=== PATIENT | male | born 1955 | race Caucasian/White ===

== ENCOUNTER 2022-03-08 06:15 | Observation (INO) ==
--- NOTE | 2022-03-01 12:32 | XRay Report ---
CLINICAL INFORMATION: Preop COMPARISON: 10/22/2020 TECHNIQUE: PA and Lateral views FINDINGS: The heart size, mediastinum and pulmonary vessels are unremarkable. The lungs are clear. There are no effusions. The bones and soft tissues are within normal limits. IMPRESSION: Normal chest. Interpreted and Authenticated by: Hector Muniz 03/01/22
[2022-03-01 15:32] LABS: Basophils # (Auto) 0.04 K/mcL (0.00-0.30); Basophils % (Auto) 0.5 % (0.0-2.0); Eosinophils # (Auto) 0.21 K/mcL (0.00-0.70); Eosinophils % (Auto) 2.9 % (0.0-7.0); Hematocrit 38.3 % (40.1-51.0); Hemoglobin 12.8 g/dL (13.7-17.5); Lymphocytes # (Auto) 1.69 K/mcL (1.50-4.80); Lymphocytes % (Auto) 23.2 % (15.5-49.0); Mean Cell Volume 95.3 fL (80.0-100.0); Mean Corpuscular HGB Conc 33.4 g/dL (31.0-36.0); Mean Platelet Volume 9.4 fL (7.4-10.4); Monocytes # (Auto) 0.78 K/mcL (0.10-0.90); Monocytes % (Auto) 10.7 % (1.0-12.0); Neutrophils % (Auto) 62.7 % (38.0-78.0); Platelet Count 245 K/mcL (140-440); RBC 4.02 M/mcL (4.63-6.08); Red Cell Distribution Width 13.7 % (11.5-14.5); WBC 7.3 K/mcL (4.5-11.0)
[2022-03-01 15:48] LABS: ALT/SGPT 13 U/L (<40); AST/SGOT 21 U/L (<40); Albumin 4.8 gm/dL (3.2-5.2); Albumin/Globulin Ratio 1.6 (1.0-2.3); Alkaline Phosphatase 83 U/L (39-117); Blood Urea Nitrogen 58 mg/dL (8-23); Calcium 9.9 mg/dL (8.6-10.4); Carbon Dioxide 20 mmol/L (22-30); Chloride 98 mmol/L (96-108); Glomerular Filtration Rate 57; Glucose 133 mg/dL (70-105)
[2022-03-01 16:04] LABS: INR 3.1 (0.9-1.1); Partial Thromboplastin Time 44.8 sec (20.0-37.0); Prothrombin Time 33.3 sec (11.9-14.5)
--- NOTE | 2022-03-06 07:35 | EKG ---
[facility] Test Date: 2022-03-01 Pat Name: Daniel Sampson Department: [facility] Room: Gender: Male Direct Support Professional Caregiver: : 1955 Requested By: Fermín Billy Order Number: [id number] Reading MD: Celestine Coronado Measurements Intervals [place] Rate: 71 P: 44 NV: 165 QRS: -14 QRSD: 102 T: 22 QT: 383 QTc: 417 Interpretive Statements Sinus rhythm Borderline low voltage, extremity leads Electronically Signed On 03-06-2022 7:35:38 PDT by Celestine Coronado /store/[email or web address]/[id number]
[~2022-03-08 06:15] MED LIST: ceFAZolin 2 GM in DEXTROSE 5% IN WATER 50 ML IV SCH
[2022-03-08 06:17] LABS: POC INR 1.2 (0.8-1.2); POC Pro Time 14.7 (11.9-14.5)
[2022-03-08] MEDS ORDERED: ONDANSETRON 4 MG/2 ML VIAL ONE (07:26)
[2022-03-08] MEDS ORDERED: LIDOCAINE HCL/PF 100 MG/5 ML SYRINGE IV ONE (07:26)
[2022-03-08] MEDS ORDERED: MAGNESIUM SULFATE 2 GM/50 ML BAG IV ONE (07:26)
[2022-03-08] MEDS ORDERED: GLYCOPYRROLATE 0.2 MG/ML VIAL IV ONE (07:26)
[2022-03-08] MEDS ORDERED: PHENYLephrine 1 MG/10 ML SYRINGE (ANEST) ONE (07:26)
[2022-03-08] MEDS ORDERED: ROCURONIUM 10 MG/ML ML IV ONE (07:26)
[2022-03-08] MEDS ORDERED: ePHEDrine 50 MG/5 ML SYRINGE (ANEST) IV ONE (07:26)
[2022-03-08] MEDS ORDERED: fentaNYL 250 MCG/5 ML VIAL IV ONE (07:26)
[2022-03-08] MEDS ORDERED: PROPOFOL 200 MG/20 ML VIAL IV ONE (07:26)
[2022-03-08] MEDS ORDERED: SUGAMMADEX SODIUM 200 MG/2 ML VIAL IV ONE (07:26)
[2022-03-08] MEDS ORDERED: DEXAMETHASONE 10 MG/ML VIAL ONE (07:26)
[2022-03-08] MEDS ORDERED: KETAMINE 50 MG/ML Syringe (ANEST) IV ONE (07:26)
[2022-03-08] MEDS ORDERED: SUCCINYLCHOLINE 20 MG/ML ML IV ONE (07:26)
[2022-03-08] MEDS ORDERED: IPRATROPIUM/ALBUTEROL 3 ML AMPUL.NEB NEB PRN (09:07)
[2022-03-08] MEDS ORDERED: MEPERIDINE 25 MG/ML VIAL IV PRN (09:07)
[2022-03-08] MEDS ORDERED: LACTATED RINGERS 250 ML IV PRN (09:07)
[2022-03-08] MEDS ORDERED: ONDANSETRON 4 MG/2 ML VIAL IV PRN (09:07)
[2022-03-08] MEDS ORDERED: ACETAMINOPHEN 1,000 MG/100 ML BAG IV ONE (09:07)
[2022-03-08] MEDS ORDERED: diphenhydrAMINE 50 MG/ML VIAL IV PRN (09:07)
[2022-03-08] MEDS ORDERED: NALOXONE HCL 0.4 MG/ML VIAL IV PRN (09:07)
[2022-03-08] MEDS ORDERED: PROMETHAZINE 25 MG/ML VIAL IV PRN (09:07)
[2022-03-08] MEDS ORDERED: LACTATED RINGERS 1,000 ML IV SCH (09:15)
--- NOTE | 2022-03-08 09:26 | Brief Operative Note ---
Brief Operative Note Date of procedure: 03/08/22 Pre-op diagnosis: cholelithiasis with cholecystitis;incisional hernia Post-op diagnosis: other (cholelithiasis with cholecystitis ;incisional hernia) Procedure: laparoscopic cholecystectomy;incisional hernia repair Grafts/Implants: No Anesthesia: GETA Findings: dilated gallbladder with stones midline incisional hernia with incarcerated omentum Complications: none Surgeon: Fermín Billy Specimens Removed/Pathology: other (gallbladder) Condition: stable Disposition: PACU
[2022-03-08] MEDS ORDERED: HYDROcodone/APAP 5/325MG TABLET PO PRN (09:27)
[2022-03-08] MEDS: fentaNYL 100 MCG/2 ML VIAL IV PRN ×4 (09:28→09:34)
[2022-03-08] MEDS ORDERED: METHOCARBAMOL 1,000 MG/10 ML VIAL IV ONE (10:15)
[2022-03-08] MEDS ORDERED: METHOCARBAMOL 1,000 MG/10 ML VIAL ONE (10:26)
[2022-03-08] MEDS: LACTATED RINGERS 1,000 ML IV SCH ×2 (11:31→23:37)
[2022-03-08] MEDS ORDERED: HYDROmorphone 1 MG/ML SYRINGE IV PRN (11:52)
[2022-03-08] MEDS: 0.9 % SODIUM CHLORIDE 10 ML SYRINGE IV SCH ×2 (14:52→20:53)
[2022-03-08] MEDS: ACETAMINOPHEN 1,000 MG/100 ML BAG IV SCH ×2 (17:01→23:45)
[2022-03-08] MEDS: METOPROLOL SUCCINATE 25 MG TAB.XL.24H PO SCH (20:53)
[2022-03-08] MEDS: GABAPENTIN 300 MG CAPSULE PO SCH (20:53)
[2022-03-09] MEDS: ACETAMINOPHEN 1,000 MG/100 ML BAG IV SCH ×2 (05:46→09:56)
[2022-03-09] MEDS ORDERED: ONDANSETRON 4 MG/2 ML VIAL IV PRN ×2 (06:01→12:20)
[2022-03-09] MEDS: 0.9 % SODIUM CHLORIDE 10 ML SYRINGE IV SCH ×3 (06:06→20:10)
[2022-03-09] MEDS ORDERED: ONDANSETRON 4 MG/2 ML VIAL ONE (06:13)
[2022-03-09 07:07] LABS: ALT/SGPT 29 U/L (<40); AST/SGOT 35 U/L (<40); Albumin/Globulin Ratio 1.5 (1.0-2.3); Alkaline Phosphatase 74 U/L (39-117); Bilirubin,Direct 0.3 mg/dL (<0.3); Bilirubin,Total 1.4 mg/dL (0.1-1.0); Blood Urea Nitrogen 31 mg/dL (8-23); Calcium 9.2 mg/dL (8.6-10.4); Carbon Dioxide 18 mmol/L (22-30); Chloride 102 mmol/L (96-108); Globulin 2.7 gm/dL (2.2-3.7); Glomerular Filtration Rate 52; Glucose 153 mg/dL (70-105); Lactate Dehydrogenase 169 U/L (135-225); Phosphorous 4.1 mg/dL (2.5-4.5); Triglycerides 132 mg/dL (<150); Uric Acid 9.4 mg/dL (2.5-8.0)
[2022-03-09 07:21] LABS: Basophils # (Auto) 0.01 K/mcL (0.00-0.30); Basophils % (Auto) 0.1 % (0.0-2.0); Eosinophils # (Auto) 0 K/mcL (0.00-0.70); Eosinophils % (Auto) 0 % (0.0-7.0); Hematocrit 33.2 % (40.1-51.0); Hemoglobin 10.7 g/dL (13.7-17.5); Lymphocytes # (Auto) 1.02 K/mcL (1.50-4.80); Lymphocytes % (Auto) 11.8 % (15.5-49.0); Mean Cell Volume 97.4 fL (80.0-100.0); Mean Corpuscular HGB Conc 32.2 g/dL (31.0-36.0); Mean Platelet Volume 9.3 fL (7.4-10.4); Monocytes % (Auto) 16.2 % (1.0-12.0); Neutrophils % (Auto) 71.9 % (38.0-78.0); Platelet Count 238 K/mcL (140-440); RBC 3.41 M/mcL (4.63-6.08); Red Cell Distribution Width 13.7 % (11.5-14.5); WBC 8.6 K/mcL (4.5-11.0)
[2022-03-09] MEDS: LISINOPRIL 20 MG TABLET PO SCH (08:47)
[2022-03-09] MEDS: FUROSEMIDE 40 MG TABLET PO SCH (08:48)
[2022-03-09] MEDS: METOPROLOL SUCCINATE 25 MG TAB.XL.24H PO SCH ×2 (08:48→20:10)
[2022-03-09] MEDS: POTASSIUM CHLORIDE 20 MEQ TABLET PO SCH (08:48)
[2022-03-09] MEDS: PIOGLITAZONE 15 MG TABLET PO SCH (08:48)
[2022-03-09] MEDS: Empagliflozin [Jardiance] 25 mg tablet PO SCH (09:15)
--- NOTE | 2022-03-09 12:14 | General Surgery Progress Note ---
SUBJECTIVE Subjective Patient information: Note initiated : 03/09/22 at 12:11 pm Service Date, if different from initiated Date: [] Patient: Daniel Sampson 66 y/o M admitted on for Laparoscopic Cholecystectomy and Umbilical Hernia . Chief Complaint: [] Principal diagnosis: Postoperative cholecystectomy Interval history: 66-year-old male status post laparoscopic cholecystectomy on yesterday. He had an uneventful procedure. He complains of abdominal distention, nausea, uncontrolled pain. The patient does not appear to be in any acute distress. He has good active bowel sounds. His abdomen is large (normal in size. No he complains of nausea he is eating his lunch without difficulty. Will extend his stay and give him laxative and Reglan. His labs are normal with BUN 31, creatinine 1.4, LFTs are normal, white blood count 8.6, hemoglobin 10.7. Constitutional Vitals: Vital Signs Temp Pulse Resp BP Pulse Ox 98.4 F 65 12 106/75 94 03/09/22 08:23 03/09/22 08:23 03/09/22 08:23 03/09/22 08:23 03/09/22 08:23 Period Temp Pulse Resp BP Sys/Hearn Pulse Ox Last 24 Hr 97.1 F-99.0 F 65-89 12-20 96-117/56-75 91-94 Intake and Output 03/08/22 03/09/22 03/09/22 21:59 05:59 13:59 Intake Total 986 650 580 Output Total 700 300 Balance 286 350 580 Intake & Output: Intake & Output 03/08/22 03/09/22 03/09/22 21:59 05:59 13:59 Intake Total 986 650 580 Output Total 700 300 Balance 286 350 580 Intake: IV 586 100 100 Lactated Ringers 1,000 ml @ 75 486 mls/hr IV .[id number] [facility] Rx#: [id number] Oral 400 550 480 Output: Void Amount 700 300 Other: Meal Breakfast Percent of Meal Consumed 100% Feeding Ability Independent Urine Appearance Clear Clear Clear Urine Color Bright Yellow Dark Yellow Dark Yellow Urine Odor Normal Normal Normal Head Head exam: Present atraumatic, normal inspection and normocephalic Eye Eye exam: Present EOMI and normal appearance Pupils: Present normal accommodation ENT ENT exam: Present mucous membranes moist and normal oropharynx Neck Neck exam: Present full ROM and normal inspection; Absent lymphadenopathy or tenderness Respiratory Respiratory exam: Present normal respiratory exam and CTAB Cardiovascular Cardiovascular exam: Present normal rate and rhythm, RRR, +S1 and +S2; Absent JVD GI/Abdominal GI/Abdominal exam: Present normal bowel sounds and distended Additional comments: Mild tenderness around port sites Extremities Exam Extremities exam: Present normal inspection and neurovascular intact Neurological Exam Neurological exam: Present CN II-XII intact, oriented X3 and reflexes normal; Absent motor sensory deficit Psychiatric Psychiatric exam: Present flat affect A/P Assessment and plan (1) Cholelithiasis and cholecystitis without obstruction: Status: Acute (2) Postoperative ileus: Status: Acute (3) Anxiety disorder: Status: Acute (4) GERD (gastroesophageal reflux disease): Status: Chronic (5) ROLANDA on CPAP: Status: Acute Plan Metoclopramide 10 mg IV every 6 hours Milk of magnesia 30 cc every 4 hours x3 Abdominal x-ray in the morning Probable discharge in the morning Time Spent With Patient Time: Total time spent is greater than 50% in coordination of care (as documented) at patient's floor/unit and/or counseling patient:
[2022-03-09] MEDS ORDERED: WARFARIN 5 MG TABLET PO SCH (12:30)
[2022-03-09] MEDS: LACTATED RINGERS 1,000 ML IV SCH (15:25)
[2022-03-09] MEDS: METOCLOPRAMIDE 10 MG/2 ML VIAL IV SCH (17:19)
[2022-03-09] MEDS: GABAPENTIN 300 MG CAPSULE PO SCH (20:10)
[2022-03-10] MEDS: METOCLOPRAMIDE 10 MG/2 ML VIAL IV SCH ×2 (00:10→05:28)
[2022-03-10] MEDS: LACTATED RINGERS 1,000 ML IV SCH (04:42)
[2022-03-10] MEDS: 0.9 % SODIUM CHLORIDE 10 ML SYRINGE IV SCH (05:27)
[2022-03-10] MEDS: POTASSIUM CHLORIDE 20 MEQ TABLET PO SCH (08:19)
[2022-03-10] MEDS: METOPROLOL SUCCINATE 25 MG TAB.XL.24H PO SCH (08:20)
[2022-03-10] MEDS: FUROSEMIDE 40 MG TABLET PO SCH (08:20)
[2022-03-10] MEDS: PIOGLITAZONE 15 MG TABLET PO SCH (08:20)
[2022-03-10] MEDS: LISINOPRIL 20 MG TABLET PO SCH (08:20)
[2022-03-10] MEDS: Empagliflozin [Jardiance] 25 mg tablet PO SCH (08:21)
--- NOTE | 2022-03-10 11:45 | Discharge Summary ---
Discharge Provider Provider IMPORTANT FOLLOW-UP INFORMATION FOR PCP: Patient information: Note initiated : 03/10/22 at 11:38 am Service Date, if different from initiated Date: [] Patient: Daniel Sampson 66 y/o M admitted on 03/09/22 for Laparoscopic Cholecystectomy and Umbilical Hernia . Chief Complaint: [] Date of admission: 03/09/22 12:25 Discharge date: 03/10/22 Primary care physician: Lukasz Peck MD Admitting clinician: Fermín Billy Attending physician on admission: Fermín Billy Attending physician on discharge: Fermín Billy Discharging clinician: Fermín Billy COURSE Hospital Course Hospital course: 66-year-old male with symptomatic gallbladder disease and incisional hernia. He underwent laparoscopic cholecystectomy and incisional hernia repair on 08 March 2022. On the first postoperative day he had some bloating with nausea and ileus. He was monitored overnight and has had multiple bowel movements and passed flatus. He feels much better today. He is tolerating diet and is stable for discharge. Discharge diagnosis: Cholelithiasis with cholecystitis Secondary discharge diagnosis: Incarcerated incisional hernia Chronic atrial fibrillation Coronary artery disease stable Diabetes mellitus type 2 Obstructive sleep apnea Morbid obesity Reason for admission: Postoperative cholecystectomy and incisional hernia repair Procedures: Laparoscopic cholecystectomy Incisional hernia repair Pertinent studies/significant findings: None Complications: None Time Spent with Patient Time attestation: Total time spent providing and/or coordinating discharge services: Time spent: Less than 30 minutes Physical Examination Vital Signs Vital signs: Temp Pulse Resp BP Pulse Ox 97.6 F 70 17 110/69 93 03/10/22 07:42 03/10/22 07:42 03/10/22 07:42 03/10/22 07:42 03/10/22 07:42 General physical appearance General physical exam: no distress, moderate pain and obese Eyes Eye exam: PERRL and normal ocular movement ENT ENT exam: normal mucosa Head Head exam IM: Present atraumatic, normal inspection and normocephalic Neck Neck exam: no masses, no bruits, trachea midline, no lymphadenopathy and no venous distension Cardiovascular Cardiovascular exam IM: Present normal rate and rhythm, RRR, +S1 and +S2; Absent JVD Respiratory Respiratory exam: normal expansion, normal respiratory effort and clear to auscultation Abdomen Abdomen: Present soft, non tender, bowel sounds (Normal bowel sounds) and surgical scars (Operative incision and port sites are unremarkable); Absent organomegaly Integumentary Integumentary: Present no rash and no growths; Absent no abnormal pigmentation (Stasis dermatitis of lower extremities) Neurologic Neurologic: Present normal coordination and normal sensation Musculoskeletal Musculoskeletal: Present normal gait and normal posture Psychiatric Psychiatric: Present oriented to time, oriented to person, oriented to place, speech is normal and memory intact Discharge Plan Patient/Caregiver Discharge Instructions Activity: increase activity as tolerated Diet: Regular Diet Prescriptions: New oxycodone-acetaminophen [Endocet] 10-325 mg Tablet 1 tab PO Q4H PRN (Reason: Pain) Qty: 30 0RF Continued metoprolol succinate [Toprol XL] 25 mg tablet extended release 24 hr 25 mg PO BID 90 Days Qty: 180 1RF hydrochlorothiazide 25 mg tablet 25 mg PO QAM Qty: 30 2RF Rx Instructions: Use with caution if having GOUT problems lately. potassium chloride 20 mEq tablet,ER particles/crystals 20 meq PO QDAY Qty: 30 5RF furosemide 40 mg tablet 40 mg PO QAM Qty: 30 5RF Rx Instructions: for 3 days Jardiance 25 mg tablet 25 mg PO QAM Qty: 30 5RF lisinopril 40 mg tablet 40 mg PO QAM Qty: 90 1RF gabapentin 300 mg capsule 600 mg PO QHS Qty: 180 2RF acarbose 25 mg tablet 25 mg PO BID Qty: 180 1RF Rx Instructions: Take 1 tablet with 2 big meals of the day. warfarin 5 mg tablet See Rx Instructions mg .ROUTE .COMPLEX Qty: 72 3RF Protocol: Dose Management Condition: Sunday Dose/Route: 5 mg Instruction: 1 x 5 mg tablet Condition: Sunday Dose/Route: 5 mg Instruction: 1 x 5 mg tablet Condition: Sunday Dose/Route: 2.5 mg Instruction: 0.5 x 5 mg tablets Condition: Sunday Dose/Route: 5 mg Instruction: 1 x 5 mg tablet Condition: Dose/Route: 2.5 mg Instruction: 0.5 x 5 mg tablets Condition: Sunday Dose/Route: 5 mg Instruction: 1 x 5 mg tablet Condition: Sunday Dose/Route: 5 mg Instruction: 1 x 5 mg tablet Protocol Text: Adjustment Start Date: Sunday02/17/22 INR Value: 2.3 INR Date: 02/17/22 Recheck Date: 03/19/22 Dose Instruction: TAKE 1 TABLET (5MG) BY MOUTH ON Sunday AND SUNDAY, THEN 1/2 TABLET (2.5MG) ON SUNDAY AND SUNDAY Rx Instructions: TAKE 1 TABLET (5MG) BY MOUTH ON SUN,SUN,SUN,SAT & SUN, 1/2 TABLET (2.5MG) ON ,. atorvastatin 40 mg tablet 40 mg PO QAM 0RF pioglitazone 45 mg tablet 45 mg PO QAM 0RF tamsulosin 0.4 mg capsule 0.4 mg PO QHS 0RF Follow Up Plan Follow up with: Fermín Billy MD [Physician] - 03/23/22 1:00 pm Patient Disposition: Home, Self-Care Prognosis: Good Rehab Potential: Good I certify that the patient requires SNF services: No Overall status at discharge: patient is progressing back to baseline Discharge Orders: Discharge Order (Routine); Ordered 03/10/22 Ordered By: Fermín Billy Pending Pending Pending: Resuscitation Status Resuscitate (Full Code) Diet Regular Diet Start SunMar 09 0800 Hydrocodone Bitart/Acetaminophen (Hydrocodone/Apap 5/325mg Tablet) 1 tab PO Q4HP PRN; Protocol PRN Reason: Per Pain Protocol Last Admin: 03/09/22 08:48 Dose: 1 tab Documented by: ELIZABETH Furosemide (Furosemide 40 Mg Tablet) 40 mg PO [facility] Last Admin: 03/10/22 08:20 Dose: 40 mg Documented by: Admin: 03/09/22 08:48 Dose: 40 mg Documented by: ELIZABETH Gabapentin (Gabapentin 300 Mg Capsule) 600 mg PO QHS [facility] Last Admin: 03/09/22 20:10 Dose: 600 mg Documented by: Admin: 03/08/22 20:53 Dose: 600 mg Documented by: JUAN Hydromorphone HCl (Hydromorphone 1 Mg/Ml Syringe) 1 mg IV Q2HP PRN; Protocol PRN Reason: Per Pain Protocol Last Admin: 03/09/22 05:48 Dose: 1 mg Documented by: JUAN Lactated Ringer's (Lactated Ringers) 1,000 mls @ 75 mls/hr IV .[id number] [facility] Last Admin: 03/10/22 04:42 Dose: Not Given Documented by: Admin: 03/09/22 15:25 Dose: Not Given Documented by: Admin: 03/08/22 23:37 Dose: Not Given Documented by: Infusion: 03/08/22 18:00 Dose: 0 mls/hr Documented by: Admin: 03/08/22 11:31 Dose: 75 mls/hr Documented by: ELIZABETH Lisinopril (Lisinopril 20 Mg Tablet) 40 mg PO DAILY [facility] Admin: 03/10/22 08:20 Dose: 40 mg Documented by: Admin: 03/09/22 08:47 Dose: 40 mg Documented by: ELIZABETH Metoclopramide HCl (Metoclopramide 10 Mg/2 Ml Vial) 10 mg IV Q6 [facility] Admin: 03/10/22 05:28 Dose: 10 mg Documented by: Admin: 03/10/22 00:10 Dose: 10 mg Documented by: Admin: 03/09/22 17:19 Dose: 10 mg Documented by: MIKE Metoprolol Succinate (Metoprolol Succinate 25 Mg Tab.Xl.24h) 25 mg PO BID [facility] Admin: 03/10/22 08:20 Dose: 25 mg Documented by: Admin: 03/09/22 20:10 Dose: 25 mg Documented by: Admin: 03/09/22 08:48 Dose: 25 mg Documented by: Admin: 03/08/22 20:53 Dose: 25 mg Documented by: JUAN Acarbose 25 Mg (Tablet) 1 dose PO BID [facility] Admin: 03/10/22 08:21 Dose: Not Given Documented by: Admin: 03/09/22 20:10 Dose: Not Given Documented by: Admin: 03/09/22 09:15 Dose: Not Given Documented by: Admin: 03/08/22 20:30 Dose: Not Given Documented by: JUAN Empagliflozin [ Jardiance] 25 Mg Tablet 1 dose PO QAM [facility] Admin: 03/10/22 08:21 Dose: Not Given Documented by: Admin: 06/23/22 09:15 Dose: Not Given Documented by: ELIZABETH Pioglitazone HCl (Pioglitazone 15 Mg Tablet) 45 mg PO DAILY [facility] Last Admin: 03/10/22 08:20 Dose: 45 mg Documented by: Admin: 03/09/22 08:48 Dose: 45 mg Documented by: ELIZABETH Potassium Chloride (Potassium Chloride 20 Meq Tablet) 20 meq PO QDAY [facility] Last Admin: 03/10/22 08:19 Dose: 20 meq Documented by: Admin: 03/09/22 08:48 Dose: 20 meq Documented by: ELIZABETH Sodium Chloride (0.9 % Sodium Chloride 10 Ml Syringe) 10 ml IV Q8 [facility] Last Admin: 03/10/22 05:27 Dose: 10 ml Documented by: Admin: 03/09/22 20:10 Dose: 10 ml Documented by: Admin: 03/09/22 15:38 Dose: 10 ml Documented by: Admin: 03/09/22 06:06 Dose: 10 ml Documented by: Admin: 03/08/22 20:53 Dose: 10 ml Documented by: Admin: 03/08/22 14:52 Dose: Not Given Documented by: ELIZABETH Shift Summary 03/10/22 01:56 Shift Summary by Anam Herzog Pt has rested fairly well so far tonight. He was up in his chair @ bedside most of the jason - up AMB in & choudhary (I) - gait stable w/ cane. ABD pain has been a constant 5/10 "OK" - no PRN pain med requested. Pt voiding QS. He has a med soft BM while up to BR. 5x ABD lap sites w/ film dressings, sm amt sanguinous drainage, and juan c in place. Saline lock to his RT hand - flushed & patent. VS - B/P slightly soft ( last) - all else WNL on R.A.. He is A&O x4, calm, pleasant, & cooperative. Pt should D/C home later today. Initialized on 03/10/22 01:56 - END OF NOTE
--- NOTE | 2022-03-15 13:12 | Operative Note ---
DATE OF OPERATION: 03/09/2022 DATE OF PROCEDURE: 03/08/2022 PREOPERATIVE DIAGNOSIS: Cholelithiasis with cholecystitis and incisional hernia. POSTOPERATIVE DIAGNOSES: Cholelithiasis with cholecystitis and incisional hernia. PROCEDURE: Laparoscopic cholecystectomy and incisional hernia repair. SURGEON: Fermín Billy M.D. FINDINGS: A dilated gallbladder with stones and midline incisional hernia with incarcerated omentum. DESCRIPTION OF PROCEDURE: Under general anesthesia, the patient's abdomen was prepped and draped in a sterile field. Timeout procedure was carried out as per protocol. The abdominal wall was prepped and draped. Supraumbilical midline incision was made about 2 to 3 cm above the hernia palpable defect. The peritoneum was insufflated uneventfully and a 12 mm port was placed. No visceral injury was noted. Under videoscopic guidance, a 12 mm port and two 5 mm ports were placed in the right subcostal region. Gallbladder was grasped and positioned. Gallbladder was dissected and the infundibulum was identified. Cystic duct and cystic artery were identified. They were clipped with five clips and divided. The gallbladder was then from the hepatic bed using electrocautery. Gallbladder was placed in an Endopouch and retrieved. Irrigation was carried out. No drain was needed. Once this was completed, the ports were removed and the midline supraumbilical incision was extended more caudad around the umbilicus. The hernia contained incarcerated omentum. The omentum was dissected free and pushed into the preperitoneal space. The fascia was good, so the fascia was closed primarily using interrupted 0 Prolene. Subcutaneous tissue was closed with 2-0 Vicryl. All skin incisions were closed with juan c. Tegaderm dressings were placed. The patient tolerated the procedure well. He was awakened and transferred to a bed, and taken to the postanesthetic care unit in satisfactory condition. LCS:linnette Job ID: [id number] Doc ID: [id number] Fermín Billy M.D.
== END 2022-03-10 14:00 | disposition home or self-care (01) ==
LOC: SUR 06:15 → MEDSUR 06:15
PROVIDERS: ADMIT Family Medicine Adult Medicine; ATTEND Family Medicine Adult Medicine

== ENCOUNTER 2023-12-18 23:33 | Inpatient (IN) ==
[2023-12-18] MEDS ORDERED: IOPAMIDOL 100 ML BOTTLE IV ONE (23:34)
[2023-12-19] MEDS: KETOROLAC 30 MG/ML VIAL IV ONE (01:10)
[2023-12-19] MEDS: PIPERACILLIN SODIUM/TAZOBACTAM 3.375 GM in DEXTROSE 5% IN WATER 50 ML IV SCH (01:25)
[2023-12-19 01:43] LABS: Basophils # (Auto) 0.03 K/mcL (0.00-0.30); Basophils % (Auto) 0.4 % (0.0-2.0); Eosinophils # (Auto) 0.27 K/mcL (0.00-0.70); Eosinophils % (Auto) 3.3 % (0.0-7.0); Hematocrit 37.4 % (40.1-51.0); Lymphocytes # (Auto) 2.04 K/mcL (1.50-4.80); Lymphocytes % (Auto) 24.6 % (15.5-49.0); Mean Cell Volume 95.9 fL (80.0-100.0); Mean Corpuscular HGB Conc 32.1 g/dL (31.0-36.0); Mean Platelet Volume 8.8 fL (8.8-12.5); Monocytes # (Auto) 1.15 K/mcL (0.10-0.90); Monocytes % (Auto) 13.9 % (1.0-12.0); Neutrophils % (Auto) 57.6 % (38.0-78.0); Platelet Count 310 K/mcL (140-440); Red Cell Distribution Width 13.4 % (11.5-14.5); WBC 8.3 K/mcL (4.5-11.0)
[2023-12-19 01:55] LABS: ALT/SGPT < 5 U/L (<40); AST/SGOT 13 U/L (<40); Albumin 3.9 gm/dL (3.2-5.2); Albumin/Globulin Ratio 1.1 (1.0-2.3); Alkaline Phosphatase 91 U/L (39-117); Bilirubin,Total 0.7 mg/dL (0.1-1.0); Blood Urea Nitrogen 47 mg/dL (8-23); Carbon Dioxide 20 mmol/L (22-30); Chloride 101 mmol/L (96-108); Globulin 3.5 gm/dL (2.2-3.7); Glomerular Filtration Rate 69; Glucose 195 mg/dL (70-105)
[2023-12-19] MEDS: morphine 2 MG/ML VIAL IV ONE (01:55)
[2023-12-19] MEDS: VANCOMYCIN 1,500 MG in 0.9 % SODIUM CHLORIDE 500 ML IV ONE (02:00)
[2023-12-19 02:22] LABS: INR 1.2 (0.9-1.1); Prothrombin Time 15.7 sec (11.9-14.5)
[2023-12-19] MEDS: CEFEPIME 2 GM VIAL IV SCH (04:34)
[2023-12-19] MEDS: METOCLOPRAMIDE 10 MG/2 ML VIAL IV ONE (04:34)
[2023-12-19] MEDS: LACTATED RINGERS 1,000 ML IV SCH (05:15)
[2023-12-19 06:08] LABS: Basophils # (Auto) 0.03 K/mcL (0.00-0.30); Basophils % (Auto) 0.4 % (0.0-2.0); Eosinophils # (Auto) 0.25 K/mcL (0.00-0.70); Eosinophils % (Auto) 3.4 % (0.0-7.0); Hematocrit 36.5 % (40.1-51.0); Hemoglobin 11.7 g/dL (13.7-17.5); Lymphocytes # (Auto) 2.06 K/mcL (1.50-4.80); Mean Cell Volume 96.6 fL (80.0-100.0); Mean Corpuscular HGB Conc 32.1 g/dL (31.0-36.0); Mean Platelet Volume 8.5 fL (8.8-12.5); Monocytes # (Auto) 1.02 K/mcL (0.10-0.90); Monocytes % (Auto) 13.8 % (1.0-12.0); Neutrophils % (Auto) 54.3 % (38.0-78.0); Platelet Count 295 K/mcL (140-440); RBC 3.78 M/mcL (4.63-6.08); Red Cell Distribution Width 13.2 % (11.5-14.5); WBC 7.4 K/mcL (4.5-11.0)
[2023-12-19 06:34] LABS: ALT/SGPT < 5 U/L (<40); AST/SGOT 12 U/L (<40); Albumin 3.7 gm/dL (3.2-5.2); Albumin/Globulin Ratio 1.1 (1.0-2.3); Alkaline Phosphatase 83 U/L (39-117); Bilirubin,Total 0.7 mg/dL (0.1-1.0); Blood Urea Nitrogen 46 mg/dL (8-23); Calcium 8.7 mg/dL (8.6-10.4); Carbon Dioxide 20 mmol/L (22-30); Chloride 102 mmol/L (96-108); Globulin 3.3 gm/dL (2.2-3.7); Glomerular Filtration Rate 62; Glucose 141 mg/dL (70-105)
[2023-12-19] MEDS ORDERED: VANCOMYCIN PER PHARMACY IV SCH (06:55)
[2023-12-19] MEDS ORDERED: ACETAMINOPHEN 325 MG TABLET PO PRN (07:02)
[2023-12-19] MEDS ORDERED: ONDANSETRON 4 MG ODT TABLET SL PRN (07:02)
[2023-12-19] MEDS ORDERED: oxyCODONE IR 5 MG TABLET PO PRN (07:55)
[2023-12-19] MEDS: DOCUSATE SODIUM 100 MG CAPSULE PO SCH (09:11)
[2023-12-19] MEDS: PIOGLITAZONE 15 MG TABLET PO SCH (10:17)
[2023-12-19] MEDS: FLUTICASONE PROPIONATE SPRAY.NAS NS SCH (10:18)
[2023-12-19] MEDS: PREGABALIN 25 MG CAPSULE PO SCH (10:18)
[2023-12-19] MEDS: ATORVASTATIN 40 MG TABLET PO SCH (10:18)
[2023-12-19] MEDS: APIXABAN 5 MG TABLET PO SCH (10:18)
[2023-12-19] MEDS: LISINOPRIL 20 MG TABLET PO SCH (10:19)
[2023-12-19] MEDS: METOPROLOL SUCCINATE 25 MG TAB.XL.24H PO SCH (10:19)
[2023-12-19] MEDS: VANCOMYCIN 1,500 MG in 0.9 % SODIUM CHLORIDE 500 ML IV SCH (11:14)
[2023-12-19] MEDS: SEMAGLUTIDE 7 MG PO SCH (11:31)
[2023-12-19] MEDS: ACETAMINOPHEN W/CODEINE #3 1 TABLET PO PRN (13:08)
[2023-12-19] MEDS: 0.9 % SODIUM CHLORIDE 10 ML SYRINGE IV SCH (13:55)
[2023-12-19] MEDS ORDERED: DEXTROSE 50% 50 ML VIAL IV PRN (14:14)
[2023-12-19] MEDS ORDERED: DEXTROSE 31 GM ORAL.SUSP PO PRN (14:14)
[2023-12-19] MEDS: INSULIN LISPRO 1 UNIT/0.01 ML UNIT SQ SCH (16:59)
[2023-12-19] MEDS: TAMSULOSIN 0.4 MG CAPSULE PO SCH (20:54)
[2023-12-19] MEDS: SENNOSIDES 1 TABLET PO SCH (20:54)
[2023-12-20 06:47] LABS: ALT/SGPT < 5 U/L (<40); AST/SGOT 13 U/L (<40); Albumin 3.6 gm/dL (3.2-5.2); Albumin/Globulin Ratio 1.1 (1.0-2.3); Alkaline Phosphatase 81 U/L (39-117); Bilirubin,Direct < 0.2 mg/dL (0-0.3); Bilirubin,Total 0.7 mg/dL (0.1-1.0); Blood Urea Nitrogen 25 mg/dL (8-23); Carbon Dioxide 21 mmol/L (22-30); Chloride 104 mmol/L (96-108); Globulin 3.2 gm/dL (2.2-3.7); Glomerular Filtration Rate 97; Glucose 146 mg/dL (70-105); Lactate Dehydrogenase 191 U/L (135-225); Phosphorous 3.2 mg/dL (2.5-4.5); Triglycerides 154 mg/dL (<150); Uric Acid 6.1 mg/dL (2.5-8.0)
[2023-12-20] MEDS: VANCOMYCIN 1,000 MG in 0.9 % SODIUM CHLORIDE 250 ML IV SCH (09:43)
[2023-12-20] MEDS: ONDANSETRON 4 MG/2 ML VIAL IV PRN (13:00)
[2023-12-20] MEDS: HYDROcodone/APAP 5/325MG TABLET PO PRN (19:37)
[2023-12-21 06:36] LABS: Blood Urea Nitrogen 22 mg/dL (8-23); Calcium 9.4 mg/dL (8.6-10.4); Carbon Dioxide 22 mmol/L (22-30); Chloride 103 mmol/L (96-108); Glomerular Filtration Rate 97; Glucose 150 mg/dL (70-105)
[2023-12-23 06:50] LABS: C-Reactive Protein 1.08 mg/dL (0.03-0.80)
== END 2023-12-24 11:32 | DRG 603 ==
LOC: ED 23:33 → MEDSUR 12-19 04:55
PROVIDERS: ADMIT Student in an Organized Health Care Education/Training Program; ATTEND Internal Medicine

== ENCOUNTER 2024-01-10 16:37 | Inpatient (IN) ==
[2024-01-10 17:13] LABS: Basophils # (Auto) 0.02 K/mcL (0.00-0.30); Basophils % (Auto) 0.1 % (0.0-2.0); Eosinophils # (Auto) 0 K/mcL (0.00-0.70); Eosinophils % (Auto) 0 % (0.0-7.0); Hemoglobin 12.2 g/dL (13.7-17.5); Lymphocytes # (Auto) 0.51 K/mcL (1.50-4.80); Lymphocytes % (Auto) 3.5 % (15.5-49.0); Mean Cell Volume 96.9 fL (80.0-100.0); Mean Corpuscular HGB Conc 32.1 g/dL (31.0-36.0); Monocytes # (Auto) 0.75 K/mcL (0.10-0.90); Monocytes % (Auto) 5.1 % (1.0-12.0); Neutrophils % (Auto) 90.5 % (38.0-78.0); Platelet Count 182 K/mcL (140-440); RBC 3.92 M/mcL (4.63-6.08); Red Cell Distribution Width 14.6 % (11.5-14.5); WBC 14.6 K/mcL (4.5-11.0)
[2024-01-10 17:39] LABS: ALT/SGPT 7 U/L (<40); AST/SGOT 22 U/L (<40); Albumin 3.8 gm/dL (3.2-5.2); Albumin/Globulin Ratio 1.2 (1.0-2.3); Alkaline Phosphatase 76 U/L (39-117); Bilirubin,Total 2.2 mg/dL (0.1-1.0); Blood Urea Nitrogen 20 mg/dL (8-23); Carbon Dioxide 20 mmol/L (22-30); Chloride 95 mmol/L (96-108); Globulin 3.2 gm/dL (2.2-3.7); Glomerular Filtration Rate 77; Glucose 278 mg/dL (70-105)
[2024-01-10] MEDS: cefTRIAXone 1 GM VIAL IV ONE (18:15)
[2024-01-10] MEDS: 0.9 % SODIUM CHLORIDE 1,000 ML IV ONE ×2 (18:15→19:29)
[2024-01-10 18:42] LABS: Appearance,Urine Clear (Clear); Bacteria,Urine 0 /hpf (0); Bilirubin,Urine Negative (Negative); Color,Urine Yellow; Culture Indicated,Urine No; Glucose,Urine (UA) >=1000 mg/dL (Negative); Ketones,Urine Negative (Negative); Leukocyte Esterase,Urine Negative /uL (Negative); Nitrate,Urine Negative (Negative); PH,Urine 5.5 (5.0-9.0); Protein,Urine Negative (Negative); Urine Blood Negative ery/mcL (Negative); Urine RBC 0 /hpf (0-3); Urine Squamous Epithelial Cell 0 /hpf (0-4); Urine WBC 1 /hpf (0-4); Urobilinogen,Urine Normal
[2024-01-10] MEDS ORDERED: DEXTROSE 31 GM ORAL.SUSP PO PRN (20:21)
[2024-01-10] MEDS ORDERED: DEXTROSE 50% 50 ML VIAL IV PRN (20:21)
[2024-01-10] MEDS ORDERED: IPRATROPIUM/ALBUTEROL 3 ML AMPUL.NEB NEB PRN (20:21)
[2024-01-10] MEDS ORDERED: VANCOMYCIN PER PHARMACY IV SCH (20:21)
[2024-01-10] MEDS: VANCOMYCIN 1,000 MG in 0.9 % SODIUM CHLORIDE 250 ML IV ONE (20:51)
[2024-01-10] MEDS: 0.9 % SODIUM CHLORIDE 1,000 ML IV SCH (21:13)
[2024-01-10] MEDS: LEVOFLOXACIN 750 MG/150 ML BAG IV SCH (21:13)
[2024-01-10] MEDS: ACETAMINOPHEN 325 MG TABLET PO PRN (21:13)
[2024-01-10] MEDS: SENNOSIDES 1 TABLET PO SCH (21:13)
[2024-01-10] MEDS: 0.9 % SODIUM CHLORIDE 10 ML SYRINGE IV SCH (21:14)
[2024-01-10] MEDS: ONDANSETRON 4 MG/2 ML VIAL IV PRN (21:14)
[2024-01-10] MEDS: traZODone HCL 50 MG TABLET PO PRN (21:14)
[2024-01-10] MEDS: DOCUSATE SODIUM 100 MG CAPSULE PO SCH (21:14)
[2024-01-10] MEDS: morphine 4 MG/ML VIAL IV PRN (21:14)
[2024-01-10] MEDS: INSULIN LISPRO 1 UNIT/0.01 ML UNIT SQ SCH (21:37)
[2024-01-10] MEDS: VANCOMYCIN 1,500 MG in 0.9 % SODIUM CHLORIDE 500 ML IV SCH (23:45)
[2024-01-11] MEDS: ONDANSETRON 4 MG/2 ML VIAL IV PRN (02:49)
[2024-01-11] MEDS: ONDANSETRON 4 MG/2 ML VIAL ONE (03:57)
[2024-01-11 06:33] LABS: Basophils # (Auto) 0.02 K/mcL (0.00-0.30); Basophils % (Auto) 0.2 % (0.0-2.0); Eosinophils # (Auto) 0 K/mcL (0.00-0.70); Eosinophils % (Auto) 0 % (0.0-7.0); Hematocrit 35.6 % (40.1-51.0); Hemoglobin 11.7 g/dL (13.7-17.5); Lymphocytes # (Auto) 0.69 K/mcL (1.50-4.80); Lymphocytes % (Auto) 5.3 % (15.5-49.0); Mean Cell Volume 95.4 fL (80.0-100.0); Mean Corpuscular HGB Conc 32.9 g/dL (31.0-36.0); Mean Platelet Volume 8.9 fL (8.8-12.5); Monocytes # (Auto) 0.76 K/mcL (0.10-0.90); Monocytes % (Auto) 5.8 % (1.0-12.0); Neutrophils % (Auto) 87.9 % (38.0-78.0); Platelet Count 172 K/mcL (140-440); RBC 3.73 M/mcL (4.63-6.08); Red Cell Distribution Width 14.8 % (11.5-14.5)
[2024-01-11 07:00] LABS: ALT/SGPT 6 U/L (<40); AST/SGOT 21 U/L (<40); Albumin 3.5 gm/dL (3.2-5.2); Albumin/Globulin Ratio 1.2 (1.0-2.3); Alkaline Phosphatase 64 U/L (39-117); Bilirubin,Total 1.8 mg/dL (0.1-1.0); Blood Urea Nitrogen 18 mg/dL (8-23); Calcium 8.7 mg/dL (8.6-10.4); Carbon Dioxide 25 mmol/L (22-30); Chloride 99 mmol/L (96-108); Glomerular Filtration Rate 88; Glucose 171 mg/dL (70-105)
[2024-01-11 08:05] LABS: Estimated Average Glucose(eAG) 146 mg/dL; Hemoglobin A1C 6.7 % Hgb (4.0-6.0)
[2024-01-11] MEDS: PIOGLITAZONE 15 MG TABLET PO SCH (09:56)
[2024-01-11] MEDS: Empagliflozin [Jardiance] 25 mg tablet PO SCH (09:57)
[2024-01-11] MEDS: POTASSIUM CHLORIDE 20 MEQ TABLET PO SCH (09:57)
[2024-01-11] MEDS: ATORVASTATIN 40 MG TABLET PO SCH (09:57)
[2024-01-11] MEDS: FLUTICASONE PROPIONATE SPRAY.NAS NAS SCH (09:57)
[2024-01-11] MEDS: APIXABAN 5 MG TABLET PO SCH (09:57)
[2024-01-11] MEDS: Diclofenac Sodium 1 % gel TOPICAL SCH (09:57)
[2024-01-11] MEDS: SEMAGLUTIDE 7 MG PO SCH (09:58)
[2024-01-11] MEDS: METOPROLOL SUCCINATE 25 MG TAB.XL.24H PO SCH (09:58)
[2024-01-11] MEDS: LISINOPRIL 10 MG TABLET PO SCH (09:58)
[2024-01-11] MEDS: PREGABALIN 25 MG CAPSULE PO SCH (10:08)
[2024-01-11] MEDS: METOCLOPRAMIDE 10 MG/2 ML VIAL IV PRN (11:04)
[2024-01-11] MEDS: BISACODYL 10 MG SUPP.RECT PR SCH (11:42)
[2024-01-11] MEDS: FLEETS ADULT 1 DOSE ENEMA PR SCH (14:10)
[2024-01-11] MEDS ORDERED: KETAMINE 50 MG/ML ML IV PRN (14:44)
[2024-01-11] MEDS: PROPOFOL 200 MG/20 ML VIAL IV SCH (15:50)
[2024-01-11] MEDS: MIDAZOLAM 2 MG/2 ML VIAL IV SCH (15:50)
[2024-01-11] MEDS: PANTOPRAZOLE 40 MG VIAL IV SCH (16:54)
[2024-01-11] MEDS: TAMSULOSIN 0.4 MG CAPSULE PO SCH (20:18)
[2024-01-11] MEDS: BENZOCAINE/MENTHOL 1 LOZENGE PO PRN (21:39)
[2024-01-12 07:11] LABS: Basophils # (Auto) 0.01 K/mcL (0.00-0.30); Basophils % (Auto) 0.1 % (0.0-2.0); Eosinophils # (Auto) 0.02 K/mcL (0.00-0.70); Eosinophils % (Auto) 0.2 % (0.0-7.0); Hematocrit 34.4 % (40.1-51.0); Hemoglobin 10.9 g/dL (13.7-17.5); Lymphocytes # (Auto) 0.82 K/mcL (1.50-4.80); Lymphocytes % (Auto) 8.1 % (15.5-49.0); Mean Cell Volume 96.9 fL (80.0-100.0); Mean Corpuscular HGB Conc 31.7 g/dL (31.0-36.0); Mean Platelet Volume 9.3 fL (8.8-12.5); Monocytes # (Auto) 0.72 K/mcL (0.10-0.90); Monocytes % (Auto) 7.1 % (1.0-12.0); Neutrophils % (Auto) 84.3 % (38.0-78.0); Platelet Count 168 K/mcL (140-440); RBC 3.55 M/mcL (4.63-6.08); Red Cell Distribution Width 14.6 % (11.5-14.5); WBC 10.1 K/mcL (4.5-11.0)
[2024-01-12 07:58] LABS: ALT/SGPT 6 U/L (<40); AST/SGOT 21 U/L (<40); Albumin 3.3 gm/dL (3.2-5.2); Alkaline Phosphatase 63 U/L (39-117); Bilirubin,Total 1.4 mg/dL (0.1-1.0); Blood Urea Nitrogen 17 mg/dL (8-23); Calcium 8.6 mg/dL (8.6-10.4); Carbon Dioxide 24 mmol/L (22-30); Chloride 101 mmol/L (96-108); Globulin 3.2 gm/dL (2.2-3.7); Glomerular Filtration Rate 97; Glucose 136 mg/dL (70-105)
[2024-01-12] MEDS: ACETAMINOPHEN W/CODEINE #3 1 TABLET PO PRN (13:11)
[2024-01-13 06:59] LABS: Basophils # (Auto) 0.01 K/mcL (0.00-0.30); Basophils % (Auto) 0.1 % (0.0-2.0); Eosinophils # (Auto) 0.03 K/mcL (0.00-0.70); Eosinophils % (Auto) 0.3 % (0.0-7.0); Hematocrit 35.9 % (40.1-51.0); Hemoglobin 11.4 g/dL (13.7-17.5); Lymphocytes # (Auto) 0.79 K/mcL (1.50-4.80); Lymphocytes % (Auto) 8.8 % (15.5-49.0); Mean Cell Volume 97.6 fL (80.0-100.0); Mean Corpuscular HGB Conc 31.8 g/dL (31.0-36.0); Mean Platelet Volume 9.5 fL (8.8-12.5); Monocytes # (Auto) 0.86 K/mcL (0.10-0.90); Monocytes % (Auto) 9.6 % (1.0-12.0); Neutrophils % (Auto) 80.3 % (38.0-78.0); Platelet Count 210 K/mcL (140-440); RBC 3.68 M/mcL (4.63-6.08); Red Cell Distribution Width 14.4 % (11.5-14.5); WBC 8.9 K/mcL (4.5-11.0)
[2024-01-13 07:11] LABS: ALT/SGPT < 5 U/L (<40); AST/SGOT 23 U/L (<40); Albumin 3.1 gm/dL (3.2-5.2); Alkaline Phosphatase 70 U/L (39-117); Bilirubin,Total 1.4 mg/dL (0.1-1.0); Blood Urea Nitrogen 14 mg/dL (8-23); Calcium 8.4 mg/dL (8.6-10.4); Carbon Dioxide 20 mmol/L (22-30); Chloride 101 mmol/L (96-108); Globulin 3.2 gm/dL (2.2-3.7); Glomerular Filtration Rate 104; Glucose 142 mg/dL (70-105)
[2024-01-14 06:43] LABS: Basophils # (Auto) 0.03 K/mcL (0.00-0.30); Basophils % (Auto) 0.3 % (0.0-2.0); Eosinophils # (Auto) 0.06 K/mcL (0.00-0.70); Eosinophils % (Auto) 0.7 % (0.0-7.0); Hemoglobin 11.7 g/dL (13.7-17.5); Lymphocytes # (Auto) 1.16 K/mcL (1.50-4.80); Lymphocytes % (Auto) 13.5 % (15.5-49.0); Mean Cell Volume 94.2 fL (80.0-100.0); Mean Corpuscular HGB Conc 32.5 g/dL (31.0-36.0); Mean Platelet Volume 8.9 fL (8.8-12.5); Monocytes # (Auto) 1.04 K/mcL (0.10-0.90); Monocytes % (Auto) 12.1 % (1.0-12.0); Neutrophils % (Auto) 71.2 % (38.0-78.0); Platelet Count 269 K/mcL (140-440); RBC 3.82 M/mcL (4.63-6.08); Red Cell Distribution Width 14.3 % (11.5-14.5); WBC 8.6 K/mcL (4.5-11.0)
[2024-01-14 06:54] LABS: ALT/SGPT 8 U/L (<40); AST/SGOT 25 U/L (<40); Albumin 3.1 gm/dL (3.2-5.2); Albumin/Globulin Ratio 0.9 (1.0-2.3); Alkaline Phosphatase 68 U/L (39-117); Bilirubin,Total 1.2 mg/dL (0.1-1.0); Blood Urea Nitrogen 13 mg/dL (8-23); Calcium 8.6 mg/dL (8.6-10.4); Carbon Dioxide 24 mmol/L (22-30); Chloride 102 mmol/L (96-108); Globulin 3.5 gm/dL (2.2-3.7); Glomerular Filtration Rate 104; Glucose 162 mg/dL (70-105)
[2024-01-14] MEDS ORDERED: BENZOCAINE/MENTHOL 1 LOZENGE PO PRN (13:10)
[2024-01-14] MEDS: guaiFENesin/DEXTROMETHORPHAN 5ML UD CUP PO PRN (20:37)
[2024-01-15 07:10] LABS: ALT/SGPT 10 U/L (<40); AST/SGOT 26 U/L (<40); Albumin 3.1 gm/dL (3.2-5.2); Alkaline Phosphatase 67 U/L (39-117); Bilirubin,Total 0.9 mg/dL (0.1-1.0); Blood Urea Nitrogen 13 mg/dL (8-23); Calcium 8.8 mg/dL (8.6-10.4); Carbon Dioxide 24 mmol/L (22-30); Chloride 104 mmol/L (96-108); Globulin 3.2 gm/dL (2.2-3.7); Glomerular Filtration Rate 104; Glucose 185 mg/dL (70-105)
[2024-01-15 09:40] LABS: Basophils # (Auto) 0.02 K/mcL (0.00-0.30); Basophils % (Auto) 0.3 % (0.0-2.0); Eosinophils # (Auto) 0.22 K/mcL (0.00-0.70); Eosinophils % (Auto) 2.9 % (0.0-7.0); Hematocrit 36.8 % (40.1-51.0); Hemoglobin 11.8 g/dL (13.7-17.5); Lymphocytes # (Auto) 1.32 K/mcL (1.50-4.80); Lymphocytes % (Auto) 17.4 % (15.5-49.0); Mean Cell Volume 96.1 fL (80.0-100.0); Mean Corpuscular HGB Conc 32.1 g/dL (31.0-36.0); Mean Platelet Volume 8.9 fL (8.8-12.5); Monocytes % (Auto) 11.9 % (1.0-12.0); Platelet Count 301 K/mcL (140-440); RBC 3.83 M/mcL (4.63-6.08); Red Cell Distribution Width 14.5 % (11.5-14.5); WBC 7.6 K/mcL (4.5-11.0)
== END 2024-01-15 15:33 | disposition home or self-care (01) | DRG 872 ==
LOC: ED 16:37 → MEDSUR 20:14
PROVIDERS: ADMIT Internal Medicine; ATTEND Internal Medicine